=== PATIENT | male | born 2000 | race Caucasian/White ===

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

== ENCOUNTER → 2021-06-26 | Outpatient (CLI) | payer OTHER | LOC: KOH-I 11:19 | DX: R51.9 Headache, unspecified (principal); R42 Dizziness and giddiness | CPT/HCPCS: 70551 ==